=== PATIENT | male | born 1980 | race Caucasian/White ===

== ENCOUNTER 2018-12-06 19:19 | Emergency (ER) | payer SELFPAY ==
[2018-12-06 19:23] VITALS: BP 121/85; PULSE 94; RESP 14; TEMP 36.8; O2SAT 98
[2018-12-06] MEDS: Acetaminophen 500 MG TAB 1000 MG PO (19:44)
--- NOTE | 2018-12-06 19:57 | DI.RAD_ITS ---
SYMPTOM/DIAGNOSIS: LEFT SHOULDER ACROMIOCLAVICULAR JOINTS 12/06 Two views were obtained and show widening of left A-C joint compared to the right with mild elevation of the distal aspect of the clavicle. No fracture identified. The findings are consistent with left A-C separation. LEFT SHOULDER: 12/06 Five views were obtained. Probable mild A-C separation noted as seen on A-C joint views. No evidence of acute fracture or glenohumeral dislocation.
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
== END 2018-12-06 21:09 | disposition home or self-care (01) ==
LOC: ER 21:14
PROVIDERS: Emergency Provider Nurse Practitioner Family
DX: S43.102A Unspecified dislocation of left acromioclavicular joint, initial encounter (principal); V28.0XXA Motorcycle driver injured in noncollision transport accident in nontraffic accident, initial encounter
CPT/HCPCS: 23540; 73030; 73050; L3650